=== PATIENT | male | born 1975 | race Caucasian/White ===

== ENCOUNTER 2018-10-16 14:36 | Emergency (ER) | payer BC, OTHER ==
[~2018-10-16] VITALS: Ht 175.3 cm; Wt 108.6 kg
[~2018-10-16 14:36] MED LIST: AMBIEN 10MG10 MG PO; CELEXA40 MG PO; NEXIUM 40MG40 MG PO; NORCO 325 MG-51 TAB PO; XANAX1 MG PO; ZANTAC 150150 MG PO
[2018-10-16 14:44] VITALS: BP 134/80; TEMP 97.7
[2018-10-16] MEDS ORDERED: PRIL40 PO (15:23)
[2018-10-16] MEDS ORDERED: ZANTAC 7575 MG PO (15:23)
[2018-10-16] MEDS ORDERED: TIVORBEX40 MG (15:24)
[2018-10-16 15:56] VITALS: PULSE 75
== END 2018-10-16 15:56 | disposition home or self-care (01) ==
LOC: COL.ER 14:36
DX: T33.532A Superficial frostbite of left finger(s), initial encounter (principal); T33.531A Superficial frostbite of right finger(s), initial encounter; F17.210 Nicotine dependence, cigarettes, uncomplicated; X31.XXXA Exposure to excessive natural cold, initial encounter; Y99.0 Civilian activity done for income or pay

== ENCOUNTER 2020-03-26 20:23 | Emergency (ER) | payer BC, OTHER ==
[~2020-03-26] VITALS: Ht 175.3 cm; Wt 109.1 kg
[~2020-03-26 20:23] MED LIST changes: +PRIL40 PO; +TIVORBEX40 MG; +ZANTAC 7575 MG PO
[2020-03-26 20:39] VITALS: TEMP 98.3
[2020-03-26] MEDS ORDERED: FLEXERIL 1010 MG/TAB PO ×3 (22:25→22:40)
[2020-03-26] MEDS ORDERED: ZOFRAN 4MG T4 MG/TAB PO ×3 (22:25→22:40)
[2020-03-26 22:51] VITALS: BP 123/74; PULSE 67
== END 2020-03-26 22:50 | disposition home or self-care (01) ==
LOC: COL.ER 20:23
DX: S06.0X0A Concussion without loss of consciousness, initial encounter (principal); R20.2 Paresthesia of skin; M54.2 Cervicalgia; K21.9 Gastro-esophageal reflux disease without esophagitis; E78.5 Hyperlipidemia, unspecified; I10 Essential (primary) hypertension; F17.210 Nicotine dependence, cigarettes, uncomplicated; V89.2XXA Person injured in unspecified motor-vehicle accident, traffic, initial encounter
CPT/HCPCS: J1885

== ENCOUNTER 2021-10-25 22:32 | Inpatient (IN) | payer OTHER ==
[~2021-10-25] VITALS: Ht 182.9 cm; Wt 111.6 kg
[~2021-10-25 22:32] MED LIST changes: +FLEXERIL 1010 MG/TAB PO; +ZOFRAN 4MG T4 MG/TAB PO
[2021-10-25 23:04] LABS: BASO % 0.2 % (0.0-2.0); EOS # 0.1 K/mm3 (0.0-0.7); EOS % 0.7 % (0.0-4.0); GRAN # 5.6 K/mm3 (1.4-6.5); GRAN % 55.9 % (42.2-75.2); HEMATOCRIT 38.9 % (42.0-52.0); HEMOGLOBIN 13.9 g/dl (13.5-18.0); LYMPH # 3.6 K/mm3 (1.2-3.4); LYMPH % 35.7 % (20.0-51.0); MEAN CELL VOLUME 93 fl (80.0-100.0); MEAN CORPUSCULAR HEMOGLOBIN 33 pg (27-31); MEAN CORPUSCULAR HGB CONC 36 g/dl (33.0-37.0); MEAN PLATELET VOLUME 9.2 fl (7.4-10.4); MONO # 0.7 K/mm3 (0.1-0.6); MONO % 7.1 % (1.7-9.3); PLATELET COUNT 199 K/mm3 (130-400); REDCELL DISTRIBUTION WIDTH-CV 13.2 % (11.5-14.5)
[2021-10-25 23:29] LABS: ALANINE AMINOTRANSFERASE 43 U/L (0-55); ALBUMIN 4.2 gm/dL (3.5-5.0); ALCOHOL(ethanol),MEDICAL < 10 mg/dL (0-10); ALKALINE PHOSPHATASE 73 U/L (40-150); ANION GAP 16 mmol/L (7-16); AST,SGOT 24 U/L (5-34); BILIRUBIN,TOTAL 0.2 mg/dL (0.2-1.2); BLOOD UREA NITROGEN 16 mg/dL (9-21); CALCIUM 9.3 mg/dL (8.4-10.2); CARBON DIOXIDE 17 mmol/L (22-29); CHLORIDE 105 mmol/L (98-107); CREATININE, serum 1.45 mg/dL (0.72-1.25); GLUCOSE 169 mg/dL (70-99); POTASSIUM 3.1 mmol/L (3.5-4.5); SALICYLATE < 5.0 mg/dL (15.0-30.0); SODIUM 138 mmol/L (136-145); TOTAL PROTEIN 7.9 gm/dL (6.2-8.1)
[2021-10-26] VITALS (652 sets, daily range): BP systolic 101–143; BP diastolic 65–86; PULSE 73–98; TEMP 97.5–100; O2SAT 92–100
[2021-10-26 01:25] LABS: TRICYCLIC ANTIDEPRESS URINE NEGATIVE
--- NOTE | 2021-10-26 05:00 | NUR ---
PATIENT INTUBATED LESS THAN 24 HOURS AGO SEDATION VACATION NOT PREFORMED AT THIS TIME
[2021-10-26 05:17] LABS: ARTERIAL BLD GAS O2 SATURATION 97.8 % (92-100); ARTERIAL BLD GAS TCO2 CT 21.6; ARTERIAL BLOOD GAS BASE EXCESS -6.6 (-2-2); ARTERIAL BLOOD GAS HCO3 20.2 meq/L (22-26); ARTERIAL BLOOD GAS PCO2 45.3 mmHg (35-45); ARTERIAL BLOOD GAS PO2 111.3 mmHg (80-100); ARTERIAL BLOOD GAS pH 7.27 (7.35-7.45)
[2021-10-26 06:19] LABS: BASO % 0.1 % (0.0-2.0); EOS % 0.1 % (0.0-4.0); GRAN # 14.5 K/mm3 (1.4-6.5); GRAN % 84.1 % (42.2-75.2); HEMATOCRIT 37.1 % (42.0-52.0); HEMOGLOBIN 12.5 g/dl (13.5-18.0); LYMPH # 1.8 K/mm3 (1.2-3.4); LYMPH % 10.2 % (20.0-51.0); MEAN CELL VOLUME 97 fl (80.0-100.0); MEAN CORPUSCULAR HEMOGLOBIN 33 pg (27-31); MEAN CORPUSCULAR HGB CONC 34 g/dl (33.0-37.0); MEAN PLATELET VOLUME 8.9 fl (7.4-10.4); MONO # 0.9 K/mm3 (0.1-0.6); MONO % 5.2 % (1.7-9.3); PLATELET COUNT 181 K/mm3 (130-400); RED BLOOD COUNT 3.83 M/mm3 (4.20-5.60); REDCELL DISTRIBUTION WIDTH-CV 13.2 % (11.5-14.5)
[2021-10-26 06:33] LABS: CALCIUM 8.1 mg/dL (8.4-10.2); CREATININE, serum 1.15 mg/dL (0.72-1.25)
[2021-10-26 06:43] LABS: ARTERIAL BLD GAS O2 SATURATION 98.8 % (92-100); ARTERIAL BLOOD GAS BASE EXCESS -6.8 (-2-2); ARTERIAL BLOOD GAS HCO3 19.3 meq/L (22-26); ARTERIAL BLOOD GAS PCO2 40.7 mmHg (35-45); ARTERIAL BLOOD GAS PO2 150.4 mmHg (80-100); ARTERIAL BLOOD GAS pH 7.29 (7.35-7.45)
[2021-10-26 06:47] LABS: MAGNESIUM 2.3 mg/dL (1.6-2.6)
--- NOTE | 2021-10-26 15:06 | NUR ---
Patient currently intubated. Patient's "step son" Mariano([phone]) and his girlfriend Suzette ([phone]) arrive to unit. Mariano reports that the patient posted on Facebook last night about his SI attempt. Mariano called his mother, the patient's fiance Sheila after he saw it. Reports after he hung up with her he called the patient who verbalized to him that he had locked himself in the laundry room and "took a bunch of pills". Mariano attempted to complete a welfare check on the patient but didn't know the patient's address. Mariano states that he doesn't have a strong relationship with either the patient or his mother Sheila due to her drinking. Mariano reports that the patient and Sheila often get into fights while drinking. Mariano reports that the patient is and only has one biological child named Nadiya, but does not have phone number for her and is unsure of where she is at. States that the patient and his daughter do not have a relationship due to Sheila's drinking. Attempt made to contact the patient's daughter with phone number listed. Call went straight to a voicemail listing Nadiya Eng.This SW contacts [place] police dept. to attempt to contact Nadiya at address listed. Officer Marty calls this SW back stating that the patient has not lived at the address listed for over a year and the new address associated with his name is [address] [place] [address]. [facility] police dept. contacted who states that the address is just outside of city limits and that it would have to be looked into by the [facility]'s office. --Contact made with the [facility]'s office who confirms the address for the patient in [facility]. PCSO is able to associate his daughters name with the [facility] [place] in [place] and a possible alternative phone number.They are also able to provide me a list of possible relatives and where they are located. This SW attempts to contact aternative phone number for the patient's daughter which goes to a landline not associated with the name Nadiya Eng.
[2021-10-26 18:23] LABS: INR 1.2 (0.8-3.0); PROTHROMBIN TIME 13.1 SECONDS (9.7-12.8)
[2021-10-26 18:34] LABS: CALCIUM 8.1 mg/dL (8.4-10.2); CREATININE, serum 1.39 mg/dL (0.72-1.25); MAGNESIUM 2.2 mg/dL (1.6-2.6); POTASSIUM 4.5 mmol/L (3.5-4.5)
--- NOTE | 2021-10-26 20:17 | NUR ---
Patient did well with his sedation vacation today; he was alert and responded appropriately to commands and nodded along in response when given an explanation of where he was and that he was intubated and on a ventilator. Put patient back on sedation.
[2021-10-27] VITALS (739 sets, daily range): BP systolic 96–144; BP diastolic 53–95; PULSE 55–77; TEMP 98.2–99.2; O2SAT 88–100
[2021-10-27 05:02] LABS: ARTERIAL BLD GAS O2 SATURATION 94.4 % (92-100); ARTERIAL BLD GAS TCO2 CT 24.6; ARTERIAL BLOOD GAS BASE EXCESS -4.5 (-2-2); ARTERIAL BLOOD GAS PCO2 52.2 mmHg (35-45); ARTERIAL BLOOD GAS PO2 77.3 mmHg (80-100); ARTERIAL BLOOD GAS pH 7.26 (7.35-7.45)
[2021-10-27 05:22] LABS: BASO % 0.1 % (0.0-2.0); EOS # 0.1 K/mm3 (0.0-0.7); EOS % 0.7 % (0.0-4.0); GRAN % 72.2 % (42.2-75.2); HEMOGLOBIN 11.6 g/dl (13.5-18.0); LYMPH # 1.7 K/mm3 (1.2-3.4); LYMPH % 17.2 % (20.0-51.0); MEAN CELL VOLUME 99 fl (80.0-100.0); MEAN CORPUSCULAR HEMOGLOBIN 33 pg (27-31); MEAN CORPUSCULAR HGB CONC 33 g/dl (33.0-37.0); MONO # 0.9 K/mm3 (0.1-0.6); MONO % 9.5 % (1.7-9.3); PLATELET COUNT 173 K/mm3 (130-400); RED BLOOD COUNT 3.51 M/mm3 (4.20-5.60); REDCELL DISTRIBUTION WIDTH-CV 13.4 % (11.5-14.5)
[2021-10-27 05:34] LABS: HEMATOCRIT 34.9 % (42.0-52.0)
[2021-10-27 05:48] LABS: ALBUMIN 3.4 gm/dL (3.5-5.0); BILIRUBIN,TOTAL 0.5 mg/dL (0.2-1.2); CALCIUM 8.3 mg/dL (8.4-10.2); CREATININE, serum 1.36 mg/dL (0.72-1.25); POTASSIUM 4.2 mmol/L (3.5-4.5); TOTAL PROTEIN 6.5 gm/dL (6.2-8.1)
--- NOTE | 2021-10-27 08:05 | NUR ---
PATIENT AWAKENS TO VOICE ABLE TO FOLLOW COMMANDS EASILY ON CURRENT SEDATION, SEDATION VACATION NOT DONE AT THIS TIME
--- NOTE | 2021-10-27 10:58 | NUR ---
SW contacts [facility] office to try and make contact with Sheila. Contacted the [facility] who has the same informaion that we have in our EMR for contact's and their phone numbers. [place] is able to tell me that Sheila's last name is Naheed and they do have a address listed in [place] on [facility] [address] [facility]. Unknow if this is current or not. PD contacted and provided Sheila's name. Patient's name provided and will send an officer to the "known addresses" on their records to attempt contact with Sheila.
--- NOTE | 2021-10-27 12:00 | NUR ---
PATIENT ASSISTED WITH REPOSITIONING, RESPONDS TO VERBAL STIMULI, PERFORMS "THUMBS UP" WHEN ASKED IF PATIENT IS DOING OK. PATIENT ASSISTS WITH REPOSITIONING, RAISES HEAD OFF OF PILLOW WITH PROMPTING.
--- NOTE | 2021-10-27 12:20 | NUR ---
DR. MACHADO ON UNIT AT THIS TIME, STATES ACCEPTABLE TO FOREGO FLUIDS WITH DEXTROSE DUE TO ORDERS TO DISCONTINUE INSULIN DRIP.
--- NOTE | 2021-10-27 16:20 | NUR ---
ornamental ironworker helper met with patient's significant other, Sheila and her son, Mariano. Nursing provided Mariano an update on patient's care and Sheila spent time with patient. Worker advised that we cannot release any credit cards or personal items to Sheila and her son and they verbalized understanding of this. Worker urged Sheila and Mariano to help try and locate patient's daughter and brother. Worker provided education on durable power of assistant manager/embalmer for health care. Additional family friend's information was obtained as Sheila does not have a working phone at this time. Friend: Gregoria Oneil #[phone]/Bailey Gonzalez #[phone].
--- NOTE | 2021-10-27 16:43 | NUR ---
Phone message received from a woman named Debi ([phone]) who reports that she is a friend of Yary. States that Sheila's phone is turned off at this time and that if we needed anything to call her and she will let Sheila know.
--- NOTE | 2021-10-27 18:00 | NUR ---
Patient's daughter Nadiya contacted this nurse. Updated on patient status and is agreeable to acting as DPOA as she is the only next of kin. All questions and concerns addressed at this time.
[2021-10-27 20:14] LABS: CALCIUM 8.2 mg/dL (8.4-10.2); CREATININE, serum 1.15 mg/dL (0.72-1.25); PHOSPHOROUS 1.6 mg/dL (2.3-4.7); POTASSIUM 3.2 mmol/L (3.5-4.5)
[2021-10-28] VITALS (610 sets, daily range): BP systolic 103–144; BP diastolic 72–96; PULSE 68–97; TEMP 99–99.6; O2SAT 62–100
[2021-10-28 04:38] LABS: ARTERIAL BLOOD GAS HCO3 23.3 meq/L (22-26); ARTERIAL BLOOD GAS PCO2 40.7 mmHg (35-45); ARTERIAL BLOOD GAS pH 7.38 (7.35-7.45)
[2021-10-28 04:39] LABS: ARTERIAL BLD GAS O2 SATURATION 93.6 % (92-100); ARTERIAL BLD GAS TCO2 CT 24.5; ARTERIAL BLOOD GAS BASE EXCESS -1.8 (-2-2)
--- NOTE | 2021-10-28 04:50 | NUR ---
PATIENT SEDATION WAS PLACED ON HOLD FOR AM LAB DRAWS RT IN ROOM AT SAME TIME AND DISCUSSED WITH THIS RN SBT DUE TO PATIENT BEING AWAKE, EXPLAINED TO PATIENT WHAT WAS GOING TO HAPPEN AND PATIENT NODDED HEAD IN AGREEMENT, PATIENT THEN BECAME VERY ANXIOUS DURING SBT WITH NOTED TACHYCARDIA PULLING SELF UP TO SITTING POSITION IN BED AND HYPERTENSIVE, SEDATION MEDIACATIONS RESTARTED AND PATIENT PLACED BACK ON PREVIOUS VENT SETTING WITH BOTH STAFF AT BEDSIDE UNTIL SURE PATIENT WAS STABLE AND RESTING QUIETLY
[2021-10-28 05:33] LABS: BASO % 0.3 % (0.0-2.0); EOS # 0.2 K/mm3 (0.0-0.7); EOS % 3.2 % (0.0-4.0); GRAN # 4.4 K/mm3 (1.4-6.5); GRAN % 62.4 % (42.2-75.2); HEMOGLOBIN 11.5 g/dl (13.5-18.0); LYMPH # 1.8 K/mm3 (1.2-3.4); LYMPH % 25.1 % (20.0-51.0); MEAN CELL VOLUME 98 fl (80.0-100.0); MEAN CORPUSCULAR HEMOGLOBIN 32 pg (27-31); MEAN CORPUSCULAR HGB CONC 33 g/dl (33.0-37.0); MONO # 0.6 K/mm3 (0.1-0.6); MONO % 8.7 % (1.7-9.3); PLATELET COUNT 160 K/mm3 (130-400); RED BLOOD COUNT 3.55 M/mm3 (4.20-5.60); REDCELL DISTRIBUTION WIDTH-CV 13.7 % (11.5-14.5)
[2021-10-28 05:34] LABS: HEMATOCRIT 34.8 % (42.0-52.0)
[2021-10-28 05:47] LABS: ALBUMIN 3.3 gm/dL (3.5-5.0); BILIRUBIN,TOTAL 0.7 mg/dL (0.2-1.2); CALCIUM 8.4 mg/dL (8.4-10.2); CREATININE, serum 1.2 mg/dL (0.72-1.25); POTASSIUM 3.8 mmol/L (3.5-4.5); TOTAL PROTEIN 6.8 gm/dL (6.2-8.1)
--- NOTE | 2021-10-28 08:00 | NUR ---
PT assessment complete. VSS. PT is intubated and sedated but easily aroused.
--- NOTE | 2021-10-28 09:00 | NUR ---
Started Weaning trial. PT sedation is turned off, PT follows all commands, reposistions himself in bed, answers questions appropriatley with head nods yes and no. PT is in no pain or distress.
--- NOTE | 2021-10-28 09:04 | NUR ---
Per nursing note's, patient's daughter contacted patient's RN last night. DPOA-HC was discussed and per hearse driver, Nadiya is ok with being the patient's DPOA-HC. Phone number for Nadiya is [phone].
--- NOTE | 2021-10-28 09:38 | NUR ---
Patient's daughter calls to the unit to get an update from the patient's RN. All questions answered by RN. RN is able to place phone on speaker phone so she is allowed to talk to her father to which he reponds to by moving his head. After, i was able to speak with Ndaiya over the phone. Reiterated to Nadiya that she is the patient's DPOA-HC. Nadiya verbalizes her agreement to this to this SW. Nadiya asks that the patients GF Kalpana is not provided her contact information and does not want to speak with her at all, but that it would be ok for Kalpana to know information about the patients care and receive updates. Asked Nadiya if the patient has ever had a SI attempt before to which she stated "no". States that her mother, the patient's commited suicide 8 years ago. My direct phone number is provided to Nadiya and encouraged to reach out to me if she needed anything or had any questions. Critical care physician arrives to the unit and gives the ok to start the extubation process.
--- NOTE | 2021-10-28 11:05 | NUR ---
Family and friends are bedside. Girlfriend Sheila and friend. Family was told again about the visitation policy of the ICU and family agrees.
--- NOTE | 2021-10-28 13:20 | NUR ---
At this time, this Nurse was in ICU03 assisting in PT care, when I recieved a call from Tele administrative assistant front desk DUANE stating my PT self extubated. On arrival to ICU05, Nurse Printing Sales Representative Kirti, and another nurse were in the room assisting PT. Nurse Kirti was using a BVM to assist in breathing and requested for a oxymask. PT was on a weaning trial starting at 0945 and has been spontanously breathing on his own since and no longer on any sedatives. PT was still in wrist soft restraints. Extubation was planned no later than 1500. PT is Alert and orient. Inspection of the mouth shows no bleeding or trauma due to self extubation. RT Kira was called and breathing treatment started. Will continue to monitor for increased oxygen needs, swelling of the throat due to trauma and mental status. VSS
--- NOTE | 2021-10-28 13:20 | NUR ---
PT SELF EXTUBATED. RT CAME TO ROOM PT ALREADY ON 8 LPM OXYMASK WITH SAT OF 96% IN NO APPARENT DISTRESS. SVN GIVEN W/O INCIDENT. PT CONTINUES TO DO WELL ON 5 LPM OXYMASK.
--- NOTE | 2021-10-28 18:14 | NUR ---
Family is bedside.
--- NOTE | 2021-10-28 19:35 | NUR ---
Updated [facility] on status of PT. All questions asked were answered.
--- NOTE | 2021-10-28 19:45 | NUR ---
PM ASSESSMENT COMPLETE. PT SLEEPING, HOWEVER WAKES UP EASILY AND ANSWERS ALL QUESTIONS APPROPRIATELY, AAOX3. PT STATES HAS NO SUICIDAL IDEATION AT THIS TIME OR THOUGHTS OF SELFHARM. CURRENTLY ON 10L OF OXYGEN VIA OXYMASK, WILL DISCUSS WITH RT PLANS FOR TONIGHT WHETHER BIPAP IS NECESSARY. LUNG SOUNDS DIMINISHED, SOME EXTRA BREATH SOUNDS MORE IN THROAT LIKELY DUE TO SELF EXTUBATION DURING DAY SHIFT. PT REPORTS NO PAIN OR DIFFICULTY BREATHING. WILL CONTINUE TO MONITOR.
--- NOTE | 2021-10-28 22:31 | NUR ---
PT ON COOL MIST HUMIDIFIER WITH ADDED OXYGEN AT 40%. CONTINUES TO SLEEP BETWEEN DISTURBANCES, AROUSES EASILY. WILL CONTINUE TO MONITOR.
[2021-10-29] VITALS (510 sets, daily range): BP systolic 110–136; BP diastolic 63–89; PULSE 68–82; TEMP 97.8–98.8; O2SAT 67–100
[2021-10-29 04:39] LABS: BASO % 0.2 % (0.0-2.0); EOS # 0.1 K/mm3 (0.0-0.7); EOS % 2.3 % (0.0-4.0); GRAN # 3.8 K/mm3 (1.4-6.5); GRAN % 70.5 % (42.2-75.2); HEMOGLOBIN 10.6 g/dl (13.5-18.0); LYMPH % 18.2 % (20.0-51.0); MEAN CELL VOLUME 97 fl (80.0-100.0); MEAN CORPUSCULAR HEMOGLOBIN 33 pg (27-31); MEAN CORPUSCULAR HGB CONC 34 g/dl (33.0-37.0); MEAN PLATELET VOLUME 8.9 fl (7.4-10.4); MONO # 0.5 K/mm3 (0.1-0.6); MONO % 8.4 % (1.7-9.3); PLATELET COUNT 146 K/mm3 (130-400); RED BLOOD COUNT 3.23 M/mm3 (4.20-5.60); REDCELL DISTRIBUTION WIDTH-CV 13.5 % (11.5-14.5)
[2021-10-29 04:40] LABS: HEMATOCRIT 31.3 % (42.0-52.0)
[2021-10-29 05:01] LABS: BILIRUBIN,TOTAL 0.7 mg/dL (0.2-1.2); CALCIUM 8.7 mg/dL (8.4-10.2); CREATININE, serum 1.03 mg/dL (0.72-1.25); TOTAL PROTEIN 6.1 gm/dL (6.2-8.1)
--- NOTE | 2021-10-29 05:41 | NUR ---
PT ASSISTED TO TOILET IN ROOM, HAD LARGE LOOSE BOWEL MOVEMENT. STEADY ON FEET WITH SBA. RN ALSO D'CD L FA PIV PER PT REQUEST OF DISCOMFORT, PAIN WITH FLUSH. TIP INTACT, GAUZE AND TAPE APPLIED. CURRENTLY ON O2 3L NC AND TOLERATING WELL.
--- NOTE | 2021-10-29 18:14 | NUR ---
DR. BOWENS NOT AVAILABLE UNTIL SUNDAY. ADDITIONAL NURSING NOTE PLACES FOR REMINDER TO CALL.
--- NOTE | 2021-10-29 20:58 | NUR ---
ASSUMED CARE OF PATIENT AFTER RECIEVING BEDSIDE REPORT. ASSESSMENT COMPLETED, VSS. OXYGEN REMOVED. TURN, COUGH, AND DEEP BREATHE ENCOURAGED. IS PROVIDED AND EDUCATION COMPLETED BY RT, PATIENT STATED UNDERSTANDING AND PERFORMED RETURN DEMONSTRATION. 02 SATURATION>90%. PATIENT DENIES COMPLAINTS, CONCERNS, AND QUESTIONS AT THIS TIME. WILL CONTINUE TO MONITOR.
[2021-10-30] VITALS (835 sets, daily range): BP systolic 139–154; BP diastolic 86–113; PULSE 66–76; TEMP 97.7–98.8; O2SAT 51–100
[2021-10-30 04:32] LABS: BASO % 0.4 % (0.0-2.0); EOS # 0.2 K/mm3 (0.0-0.7); EOS % 3.6 % (0.0-4.0); GRAN # 3.4 K/mm3 (1.4-6.5); GRAN % 60.4 % (42.2-75.2); HEMOGLOBIN 11.5 g/dl (13.5-18.0); LYMPH # 1.3 K/mm3 (1.2-3.4); LYMPH % 22.9 % (20.0-51.0); MEAN CELL VOLUME 94 fl (80.0-100.0); MEAN CORPUSCULAR HEMOGLOBIN 32 pg (27-31); MEAN CORPUSCULAR HGB CONC 34 g/dl (33.0-37.0); MEAN PLATELET VOLUME 8.5 fl (7.4-10.4); MONO # 0.7 K/mm3 (0.1-0.6); MONO % 11.6 % (1.7-9.3); PLATELET COUNT 186 K/mm3 (130-400); RED BLOOD COUNT 3.55 M/mm3 (4.20-5.60); REDCELL DISTRIBUTION WIDTH-CV 13.2 % (11.5-14.5)
[2021-10-30 04:36] LABS: CALCIUM 8.3 mg/dL (8.4-10.2); CREATININE, serum 1.04 mg/dL (0.72-1.25); POTASSIUM 3.9 mmol/L (3.5-4.5)
[2021-10-30 04:44] LABS: HEMATOCRIT 33.4 % (42.0-52.0)
--- NOTE | 2021-10-30 07:39 | NUR ---
RECEIVED BEDSIDE SHIFT REPORT FROM KIMMY STUART. PATIENT IN BED WATCHING TV. CALL LIGHT WITHIN REACH. VSS. NO COMPLAINTS AT THIS TIME. INT SITE INTACT. WILL PULL CENTRAL LINE TODAY.
--- NOTE | 2021-10-30 12:45 | NUR ---
DR. MACHADO AT BEDSIDE. DISCUSSED PLAN OF CARE. UPDATE GIVEN
[2021-10-31] VITALS (118 sets, daily range): BP systolic 133–157; BP diastolic 88–108; PULSE 60–89; TEMP 98–98.7; O2SAT 76–100
[2021-10-31 05:25] LABS: MEAN CELL VOLUME 92 fl (80.0-100.0); MEAN CORPUSCULAR HEMOGLOBIN 32 pg (27-31); MEAN CORPUSCULAR HGB CONC 35 g/dl (33.0-37.0); MEAN PLATELET VOLUME 8.4 fl (7.4-10.4); PLATELET COUNT 184 K/mm3 (130-400); RED BLOOD COUNT 3.76 M/mm3 (4.20-5.60); REDCELL DISTRIBUTION WIDTH-CV 13.2 % (11.5-14.5)
[2021-10-31 05:31] LABS: HEMATOCRIT 34.5 % (42.0-52.0)
[2021-10-31 05:42] LABS: ALBUMIN 3.4 gm/dL (3.5-5.0); BILIRUBIN,TOTAL 0.5 mg/dL (0.2-1.2); CALCIUM 8.6 mg/dL (8.4-10.2); CREATININE, serum 1.06 mg/dL (0.72-1.25); PHOSPHOROUS 2.9 mg/dL (2.3-4.7); POTASSIUM 3.4 mmol/L (3.5-4.5); TOTAL PROTEIN 6.7 gm/dL (6.2-8.1)
[2021-10-31 06:14] LABS: BAND 9 % (0-10); BASOPHIL 1 % (0-2); EOSINOPHIL 4 % (0-4); LYMPHOCYTE 30 % (20.0-51.0); METAMYELOCYTE 3 % (0-0); NEUTROPHILS 38 % (42.0-75.2); PLATELET ESTIMATE NORMAL (NORMAL)
--- NOTE | 2021-10-31 09:39 | NUR ---
Patient to have a psych screen today. Goal is to get the patient screened by Samaria. Dr. Samaniego floor covering contractor today. Consult placed.
[2021-10-31] MEDS ORDERED: TYLENOL 325MG325 MG PO (10:00)
--- NOTE | 2021-10-31 12:35 | NUR ---
PATIENT RESTING IN BED WITH EYES OPEN, CALM, CONVERSES WITH THIS RN, STATES FEELING MUCH BETTER TODAY. PHYSICAL THERAPY VISITS, PATIENT WALKS IN HALLS SBA. DR. GIL UPDATED, REQUESTS [facility] AND DR. Anette BOWENS CONSULT.
[2021-10-31] MEDS ORDERED: LEXAPRO 5MG5 MG PO (16:58)
[2021-10-31] MEDS ORDERED: ULTRAM 50MG TAB50 MG PO (17:02)
[2021-10-31] MEDS ORDERED: NEURONTIN600 MG/TAB PO (17:03)
[2021-10-31] MEDS ORDERED: MINIPRESS 5M5 MG/CAP (17:05)
[2021-10-31] MEDS ORDERED: VISTARIL 2525 MG/CAP (17:07)
--- NOTE | 2021-10-31 17:58 | NUR ---
PATIENT FAMILY AT BEDSIDE, MARIYA DISCUSSES CONCERNS WITH THIS RN ABOUT GOING HOME TONIGHT AFTER NEWS OF GIRLFRIEND'S MEDICAL CONCERNS. MARIYA STATES HE WOULD LIKE TO MAKE SURE HOUSE IS FREE OF EXCESS MEDICATIONS AND SAFE FOR PATIENT ARRIVAL. CALL PLACED TO DR. GIL, STATES APPROVAL OF PLAN TO DISCHARGE ON 11/01/21 IN THE AM. PATIENT IS ABLE TO MOVE TO MED/SURG FLOOR UNTIL DISCHARGE. CALL PLACED TO DRAFTER PLUMBING TO NOTIFY OF PLAN.
--- NOTE | 2021-10-31 19:00 | NUR ---
Received report from KIMMY Woodson, and KIMMY Blanca.
--- NOTE | 2021-10-31 20:30 | NUR ---
Patient awake and sitting on the edge of bed. He denies any pain or discomfort. All vitals within normal limits. Patient is independent in the room. Snack provided. No further needs noted at this time.
[2021-11-01] VITALS: BP 129/91; PULSE 63; TEMP 98.4
[2021-11-01 04:00] VITALS: BP 145/92; PULSE 62; TEMP 97.8
--- NOTE | 2021-11-01 07:00 | NUR ---
PT SLEEPING IN BED. VSS. PT TO DC HOME TODAY.
[2021-11-01 07:58] VITALS: BP 145/92; PULSE 63; TEMP 98
[2021-11-01] MEDS ORDERED: PRIL40 PO (09:49)
[2021-11-01] MEDS ORDERED: DESYREL 50MG50 MG PO (10:09)
[2021-11-01] MEDS ORDERED: NAPROSYN500 MG PO (10:12)
[2021-11-01] MEDS ORDERED: VIAGRA100 M1 PO (10:14)
[2021-11-01] MEDS ORDERED: LEXAPRO20 MG PO (10:26)
--- NOTE | 2021-11-01 10:56 | NUR ---
Met with patient prior to discharge. Patient's "step son" Mariano and his girlfriend Suzette present at bedside. Education provided to the patient about legal next of kin vs. DPOA-HC. Patient completes DPOA-HC form listing Mariano Farfan ([phone]) as his primary agent and Christopher Farfan ([phone]) as his secondary agent. Both are the children of his current long time partner Sheila Farfan. This sw and patient's RN witness patient sign form. Completed copy placed in the patient's chart. Original and additional copies provided back to the patient.
--- NOTE | 2021-11-01 11:09 | NUR ---
FOLLOW UP APPOINTMENT AT [facility] MADE BY PT. DISCHARGE INSTRUCTIONS DISCUSSED WITH PT. NEW MED CHANGES DISCUSSED WITH PT. ALL QUESTIONS ANSWERED. IV AND TELE DC'D. PT WALKED OUT FOR DISCHARGE WITH STEP-SON./
--- NOTE | 2021-11-01 11:36 | NUR ---
PT LEFT DISABLED ID CARD IN ROOM. ALSO, SECURITY FOUND PT'S SHOES AND CELLPHONE. PT CALLED AND NOTIFIED. WILL COME BACK TO REAL ESTATE LEGAL ASSISTANT.
--- NOTE | 2021-11-02 13:41 | NUR ---
Message returned to Sherri at [facility]. Update provided to her that the patient went home yesterday. She is going to touch base with the patient and help establish him a follow up with Samaria.
== END 2021-11-01 11:00 | disposition home or self-care (01) | DRG 917 ==
LOC: COL.ER 22:32 → ICU 10-26 00:54
PROVIDERS: Internal Medicine Sleep Medicine; Personal Emergency Response Attendant; Student in an Organized Health Care Education/Training Program; ADMIT Internal Medicine
PROC: 5A1945Z Respiratory Ventilation, 24-96 Consecutive Hours (ICD-10-PCS; principal; 2021-10-26)
PROC: 0BH17EZ Insertion of Endotracheal Airway into Trachea, Via Natural or Artificial Opening (ICD-10-PCS; 2021-10-26)
DX: T44.6X2A Poisoning by alpha-adrenoreceptor antagonists, intentional self-harm, initial encounter (principal); J96.90 Respiratory failure, unspecified, unspecified whether with hypoxia or hypercapnia; N17.9 Acute kidney failure, unspecified; R45.851 Suicidal ideations; T43.222A Poisoning by selective serotonin reuptake inhibitors, intentional self-harm, initial encounter; T47.1X2A Poisoning by other antacids and anti-gastric-secretion drugs, intentional self-harm, initial encounter; T43.592A Poisoning by other antipsychotics and neuroleptics, intentional self-harm, initial encounter; E87.6 Hypokalemia; Z20.822 Contact with and (suspected) exposure to COVID-19; I10 Essential (primary) hypertension; F43.10 Post-traumatic stress disorder, unspecified; F32.9 Major depressive disorder, single episode, unspecified; I95.9 Hypotension, unspecified; F41.1 Generalized anxiety disorder; I45.10 Unspecified right bundle-branch block; Y92.009 Unspecified place in unspecified non-institutional (private) residence as the place of occurrence of the external cause; Z79.891 Long term (current) use of opiate analgesic
CPT/HCPCS: 99223-AI; 99232-AI; 99233-AI; 99239; A9284; J1644; J2250; J2405; J2543; J2704; J3010; J3475; J3480; J7030; J7050; J7060

== ENCOUNTER 2021-11-03 11:54 | Emergency (ER) | payer OTHER ==
[~2021-11-03] VITALS: Ht 175.3 cm; Wt 109.1 kg
[~2021-11-03 11:54] MED LIST changes: +DESYREL 50MG50 MG PO; +LEXAPRO 5MG5 MG PO; +LEXAPRO20 MG PO; +MINIPRESS 5M5 MG/CAP; +NAPROSYN500 MG PO; +NEURONTIN600 MG/TAB PO; +TYLENOL 325MG325 MG PO; +ULTRAM 50MG TAB50 MG PO; +VIAGRA100 M1 PO; +VISTARIL 2525 MG/CAP
[2021-11-03 12:05] VITALS: TEMP 98.4
[2021-11-03 12:44] LABS: HEMATOCRIT 39.3 % (42.0-52.0); HEMOGLOBIN 13.5 g/dl (13.5-18.0); MEAN CELL VOLUME 94 fl (80.0-100.0); MEAN CORPUSCULAR HEMOGLOBIN 32 pg (27-31); MEAN CORPUSCULAR HGB CONC 34 g/dl (33.0-37.0); MEAN PLATELET VOLUME 8.4 fl (7.4-10.4); PLATELET COUNT 190 K/mm3 (130-400); RED BLOOD COUNT 4.19 M/mm3 (4.20-5.60); REDCELL DISTRIBUTION WIDTH-CV 13.7 % (11.5-14.5)
[2021-11-03 13:06] LABS: ALANINE AMINOTRANSFERASE 68 U/L (0-55); ALBUMIN 4.1 gm/dL (3.5-5.0); ALKALINE PHOSPHATASE 68 U/L (40-150); ANION GAP 11 mmol/L (7-16); AST,SGOT 25 U/L (5-34); BILIRUBIN,TOTAL 0.4 mg/dL (0.2-1.2); BLOOD UREA NITROGEN 16 mg/dL (9-21); CALCIUM 9.2 mg/dL (8.4-10.2); CARBON DIOXIDE 19 mmol/L (22-29); CHLORIDE 106 mmol/L (98-107); CREATININE, serum 1.15 mg/dL (0.72-1.25); GLUCOSE 125 mg/dL (70-99); LIPASE 29 U/L (8-78); POTASSIUM 4.6 mmol/L (3.5-4.5); SODIUM 136 mmol/L (136-145); TOTAL PROTEIN 7.8 gm/dL (6.2-8.1)
[2021-11-03 13:10] LABS: BAND 7 % (0-10); EOSINOPHIL 1 % (0-4); LYMPHOCYTE 30 % (20.0-51.0); NEUTROPHILS 50 % (42.0-75.2); PLATELET ESTIMATE NORMAL (NORMAL)
[2021-11-03 13:13] LABS: TROPONIN-I < 0.010 ng/mL (0.00-0.033)
[2021-11-03 13:45] LABS: COLLECTION METHOD CLEAN CATCH
[2021-11-03 13:55] LABS: PH 5 (5-8); SQUAMOUS EPITHELIAL None Seen /hpf (0-10); URINE APPEARANCE Clear (CLEAR/HAZY); URINE BACTERIA None Seen /hpf (NONE SEEN); URINE BILIRUBIN Negative (NEGATIVE); URINE BLOOD Negative (NEGATIVE); URINE COLOR Yellow (YELLOW); URINE GLUCOSE Negative (NEGATIVE); URINE KETONE Negative (NEGATIVE); URINE LEUKOCYTE ESTERASE Negative (NEGATIVE); URINE NITRATE Negative (NEGATIVE); URINE PROTEIN(semi-quant) Negative (NEGATIVE); URINE RBC 0-2 /hpf (0-2); URINE UROBILINOGEN Negative (NEGATIVE)
[2021-11-03 14:05] LABS: TRICYCLIC ANTIDEPRESS URINE NEGATIVE
[2021-11-03 16:00] VITALS: BP 136/95; PULSE 64
== END 2021-11-03 16:07 | disposition home or self-care (01) ==
LOC: COL.ER 11:54
PROVIDERS: Physician Assistant
DX: R05.9 Cough, unspecified (principal)
CPT/HCPCS: J7030

== ENCOUNTER 2022-03-07 17:23 | Emergency (ER) | payer OTHER ==
[~2022-03-07] VITALS: Ht 175.3 cm; Wt 113.6 kg
[2022-03-07 17:24] VITALS: TEMP 98.2
[2022-03-07 18:10] LABS: BASO % 0.3 % (0.0-2.0); EOS # 0.1 K/mm3 (0.0-0.7); EOS % 1.3 % (0.0-4.0); GRAN # 3.4 K/mm3 (1.4-6.5); GRAN % 54.8 % (42.2-75.2); HEMOGLOBIN 13.3 g/dl (13.5-18.0); LYMPH # 2.1 K/mm3 (1.2-3.4); LYMPH % 33.5 % (20.0-51.0); MEAN CELL VOLUME 93 fl (80.0-100.0); MEAN CORPUSCULAR HEMOGLOBIN 33 pg (27-31); MEAN CORPUSCULAR HGB CONC 35 g/dl (33.0-37.0); MONO # 0.6 K/mm3 (0.1-0.6); MONO % 9.6 % (1.7-9.3); PLATELET COUNT 187 K/mm3 (130-400); RED BLOOD COUNT 4.09 M/mm3 (4.20-5.60); REDCELL DISTRIBUTION WIDTH-CV 13.2 % (11.5-14.5)
[2022-03-07 18:23] LABS: ALANINE AMINOTRANSFERASE 49 U/L (0-55); ALKALINE PHOSPHATASE 75 U/L (40-150); ANION GAP 12 mmol/L (7-16); AST,SGOT 26 U/L (5-34); BILIRUBIN,TOTAL 0.4 mg/dL (0.2-1.2); BLOOD UREA NITROGEN 14 mg/dL (9-21); CARBON DIOXIDE 21 mmol/L (22-29); CHLORIDE 108 mmol/L (98-107); CREATININE, serum 1.01 mg/dL (0.72-1.25); GLUCOSE 82 mg/dL (70-99); POTASSIUM 3.6 mmol/L (3.5-4.5); SODIUM 141 mmol/L (136-145); TOTAL PROTEIN 7.2 gm/dL (6.2-8.1)
[2022-03-07 18:30] LABS: TROPONIN-I < 0.010 ng/mL (0.00-0.033)
[2022-03-07 19:11] VITALS: BP 138/97; PULSE 78
== END 2022-03-07 19:13 | disposition home or self-care (01) ==
LOC: COL.ER 17:23
PROVIDERS: Emergency Medicine
DX: R07.2 Precordial pain (principal); F17.210 Nicotine dependence, cigarettes, uncomplicated; Z20.822 Contact with and (suspected) exposure to COVID-19; Z28.310 Unvaccinated for COVID-19

== ENCOUNTER 2022-04-29 14:43 | Emergency (ER) | payer OTHER ==
[~2022-04-29] VITALS: Ht 175.3 cm; Wt 109.1 kg
[2022-04-29 14:45] VITALS: TEMP 98.6
[2022-04-29 15:24] LABS: HEMOGLOBIN 12.6 g/dl (13.5-18.0); MEAN CELL VOLUME 94 fl (80.0-100.0); MEAN CORPUSCULAR HEMOGLOBIN 33 pg (27-31); MEAN CORPUSCULAR HGB CONC 36 g/dl (33.0-37.0); MEAN PLATELET VOLUME 8.5 fl (7.4-10.4); PLATELET COUNT 184 K/mm3 (130-400); RED BLOOD COUNT 3.77 M/mm3 (4.20-5.60); REDCELL DISTRIBUTION WIDTH-CV 12.8 % (11.5-14.5)
[2022-04-29 15:26] LABS: HEMATOCRIT 35.4 % (42.0-52.0)
[2022-04-29 15:45] LABS: ALBUMIN 3.8 gm/dL (3.5-5.0); BILIRUBIN,TOTAL 0.4 mg/dL (0.2-1.2); CREATININE, serum 1.08 mg/dL (0.72-1.25); POTASSIUM 3.9 mmol/L (3.5-4.5)
[2022-04-29 15:50] LABS: BAND 4 % (0-10); EOSINOPHIL 1 % (0-4); LYMPHOCYTE 32 % (20.0-51.0); METAMYELOCYTE 1 % (0-0); NEUTROPHILS 53 % (42.0-75.2); PLATELET ESTIMATE NORMAL (NORMAL)
[2022-04-29 17:12] VITALS: BP 128/91; PULSE 81
== END 2022-04-29 17:13 | disposition home or self-care (01) ==
LOC: COL.ER 14:43
PROVIDERS: Emergency Medicine
DX: R04.0 Epistaxis (principal); R53.83 Other fatigue; R11.0 Nausea; Z87.891 Personal history of nicotine dependence; Z28.310 Unvaccinated for COVID-19
CPT/HCPCS: C9113; J2405; J7030

== ENCOUNTER 2022-10-11 23:44 | Emergency (ER) | payer OTHER ==
[~2022-10-11] VITALS: Ht 175.3 cm; Wt 118.6 kg
[2022-10-11 23:51] VITALS: TEMP 98.4
[2022-10-12 00:21] LABS: COLLECTION METHOD CLEAN CATCH
[2022-10-12 00:28] LABS: MUCOUS Present (NOT PRESENT); SQUAMOUS EPITHELIAL 0-2 /hpf (0-10); URINE BACTERIA None Seen /hpf (NONE SEEN)
[2022-10-12 00:29] LABS: URINE APPEARANCE Clear (CLEAR/HAZY); URINE BLOOD 1+ (NEGATIVE); URINE COLOR Yellow (YELLOW); URINE GLUCOSE Negative (NEGATIVE); URINE KETONE Negative (NEGATIVE); URINE NITRATE Negative (NEGATIVE); URINE PROTEIN(semi-quant) 1+ (NEGATIVE); URINE UROBILINOGEN 0.2 E.U/dL (0.2-1.0)
[2022-10-12 00:40] LABS: BASO % 0.3 % (0.0-2.0); EOS % 0.3 % (0.0-4.0); GRAN # 8.6 K/mm3 (1.4-6.5); GRAN % 79.1 % (42.2-75.2); HEMATOCRIT 38.7 % (42.0-52.0); HEMOGLOBIN 13.1 g/dl (13.5-18.0); LYMPH # 1.5 K/mm3 (1.2-3.4); LYMPH % 13.5 % (20.0-51.0); MEAN CELL VOLUME 94 fl (80.0-100.0); MEAN CORPUSCULAR HEMOGLOBIN 32 pg (27-31); MEAN CORPUSCULAR HGB CONC 34 g/dl (33.0-37.0); MEAN PLATELET VOLUME 8.8 fl (7.4-10.4); MONO # 0.7 K/mm3 (0.1-0.6); MONO % 6.3 % (1.7-9.3); PLATELET COUNT 227 K/mm3 (130-400); RED BLOOD COUNT 4.14 M/mm3 (4.20-5.60); REDCELL DISTRIBUTION WIDTH-CV 13.9 % (11.5-14.5)
[2022-10-12 00:59] LABS: ALBUMIN 4.4 gm/dL (3.5-5.0); BILIRUBIN,TOTAL 0.3 mg/dL (0.2-1.2); CALCIUM 9.5 mg/dL (8.4-10.2); CREATININE, serum 1.64 mg/dL (0.72-1.25); POTASSIUM 3.6 mmol/L (3.5-4.5); TOTAL PROTEIN 7.9 gm/dL (6.2-8.1)
[2022-10-12 02:39] VITALS: BP 150/100; PULSE 70
== END 2022-10-12 02:45 | disposition home or self-care (01) ==
LOC: COL.ER 23:44
PROVIDERS: Physician Assistant
DX: M54.9 Dorsalgia, unspecified (principal); K59.00 Constipation, unspecified; Z28.310 Unvaccinated for COVID-19
CPT/HCPCS: J1885; J2360

== ENCOUNTER 2024-05-17 12:36 | Emergency (ER) | payer OTHER ==
[~2024-05-17] VITALS: Ht 175.3 cm; Wt 118.2 kg
[2024-05-17 12:50] VITALS: TEMP 98.2
[2024-05-17 14:47] LABS: BASO % 0.3 % (0.0-2.0); EOS # 0.1 K/mm3 (0.0-0.7); EOS % 0.9 % (0.0-4.0); GRAN # 5.7 K/mm3 (1.4-6.5); GRAN % 62.6 % (42.2-75.2); HEMATOCRIT 41.6 % (42.0-52.0); HEMOGLOBIN 14.5 g/dl (13.5-18.0); LYMPH # 2.3 K/mm3 (1.2-3.4); LYMPH % 25.4 % (20.0-51.0); MEAN CELL VOLUME 96 fl (80.0-100.0); MEAN CORPUSCULAR HEMOGLOBIN 34 pg (27-31); MEAN CORPUSCULAR HGB CONC 35 g/dl (33.0-37.0); MEAN PLATELET VOLUME 9.6 fl (7.4-10.4); MONO % 10.6 % (1.7-9.3); PLATELET COUNT 189 K/mm3 (130-400); RED BLOOD COUNT 4.32 M/mm3 (4.20-5.60); REDCELL DISTRIBUTION WIDTH-CV 13.1 % (11.5-14.5)
[2024-05-17 14:56] LABS: ERYTHROCYTE SEDIMENTATION RATE 9 mm/hr (0-15)
[2024-05-17 15:07] LABS: ALBUMIN 4.2 g/dL (3.5-5.0); BILIRUBIN,TOTAL 0.5 mg/dL (0.2-1.2); C-REACTIVE PROTEIN 3.09 mg/dL (0.00-0.50); CALCIUM 9.6 mg/dL (8.4-10.2); CREATININE, serum 1.18 mg/dL (0.72-1.25); POTASSIUM 3.5 mEq/L (3.5-4.5); TOTAL PROTEIN 7.9 g/dl (6.2-8.1)
[2024-05-17 16:21] LABS: URIC ACID 9.2 mg/dL (3.5-7.2)
[2024-05-17 17:26] VITALS: BP 148/60; PULSE 90
== END 2024-05-17 17:26 | disposition home or self-care (01) ==
LOC: COL.ER 12:36
PROVIDERS: Physician Assistant
DX: M10.062 Idiopathic gout, left knee (principal); R79.82 Elevated C-reactive protein (CRP); Z79.899 Other long term (current) drug therapy